=== PATIENT | male | born 1960 | race African-American/Black ===

== ENCOUNTER 2016-09-21 08:51 | Emergency (ER) | payer OTHER, MEDICAID ==
[~2016-09-21] VITALS: Ht 185.4 cm; Wt 112.0 kg
[~2016-09-21 08:51] MED LIST: AMLO5TAB4
[2016-09-21] MEDS ORDERED: MORPHINE SULFATE 4 MG/ML CPJ (NOT FOR IM USE) IV STA (09:36)
[2016-09-21] MEDS ORDERED: ONDANSETRON HCL 4MG/2ML VIAL IV STA (09:36)
[2016-09-21 10:07] LABS: BASOPHILS % 0.6 % (0.0-2.0); EOSINOPHILS % 2.3 % (0.0-5.0); HEMATOCRIT. 46.1 % (42.0-52.0); HEMOGLOBIN. 15.8 g/dL (14.0-18.0); LYMPHOCYTES % 26.5 % (20.0-50.0); MEAN CORPUSCULAR HEMOGLOBIN 27.9 pg (28.0-32.0); MEAN CORPUSCULAR HGB CONC 34.3 g/dL (31.0-37.0); MEAN CORPUSCULAR VOLUME 81.5 fL (80.0-94.0); MEAN PLATELET VOLUME 8.5 fl (7.4-10.4); MONOCYTES % 9.6 % (2.0-8.0); PLATELET 156 x1000/uL (130-400); RED BLOOD CELL COUNT 5.66 mill/uL (4.7-6.1); RED CELL DISTRIBUTION WIDTH 14.3 % (11.6-14.6); WHITE BLOOD COUNT 4.6 x1000/uL (4.5-11.0)
[2016-09-21] MEDS ORDERED: KETOROLAC 60MG/2ML VIAL IM ONE (10:15)
[2016-09-21 10:16] LABS: ALBUMIN 3.8 g/dL (3.4-5.0); ANION GAP 13; CALCIUM 8.8 mg/dL (8.5-10.1); CARBON DIOXIDE 25 mEq/L (21-32); CHLORIDE 107 mEq/L (98-107); INDEX HEMOLYSI 1 (1-3); INDEX ICTERIC 1 (1-4); INDEX LIPEMIC 1 (1-3); LIPASE 70 IU/L (73-393); UREA NITROGEN BLOOD 13 mg/dL (7-21)
[2016-09-21 10:17] LABS: PARTIAL THROMBOPLASTIN TIME 29.5 sec (24.0-34.0); PROTHROMBIN TIME 10.7 sec
[2016-09-21 10:24] LABS: ALANINE AMINOTRANSFERASE 35 IU/L (13-61); NT PRO B-TYPE NATRIURETIC PEP 8 pg/mL (5-125); TROPONIN I < 0.02 ng/mL (0.00-0.04); eGFR > 60 mL/min (>60)
[2016-09-21 10:27] VITALS: BP 135/93
== END 2016-09-21 14:08 | disposition home or self-care (01) ==
LOC: ER 10:25
DX: R07.89 Other chest pain (principal); K63.89 Other specified diseases of intestine; R05 Cough; I10 Essential (primary) hypertension; R10.32 Left lower quadrant pain; R19.7 Diarrhea, unspecified; R11.0 Nausea
CPT/HCPCS: 36415; 71010; 74176; 80053; 83690; 83880; 84484; 85025; 85610; 85730; 93005; 96372; 96374; 99285; J1885; J2405; Z7610

== ENCOUNTER 2018-02-09 08:31 | Emergency (ER) | payer MEDICAID, OTHER ==
[~2018-02-09] VITALS: Ht 185.4 cm; Wt 111.0 kg
[2018-02-09 10:50] VITALS: BP 162/99
== END 2018-02-09 11:09 | disposition home or self-care (01) ==
LOC: ER 08:51
DX: S00.03XA Contusion of scalp, initial encounter (principal); S40.212A Abrasion of left shoulder, initial encounter; M54.2 Cervicalgia; R20.2 Paresthesia of skin; V49.49XA Driver injured in collision with other motor vehicles in traffic accident, initial encounter; Y93.89 Activity, other specified; Y92.410 Unspecified street and highway as the place of occurrence of the external cause; I10 Essential (primary) hypertension; Z72.0 Tobacco use
CPT/HCPCS: 70450; 71045; 72125; 73030; 99284; Z7610